=== PATIENT | female | born 2000 | race Caucasian/White ===

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

== ENCOUNTER 2019-01-18 12:18 | Emergency (ER) | payer OTHER ==
[~2019-01-18] VITALS: Ht 167.6 cm; Wt 65.5 kg
--- NOTE | 2019-01-18 13:14 | REP ---
Clinical: Cough. Technique: PA and lateral. Findings: Small acute infiltrate in the basilar right upper lobe. Mediastinum and cardiac silhouette normal. Remainder of lung babin are clear. No effusion. No pneumothorax. Skeletal structures intact. Impression: Small right upper lobe infiltrate. Electronically Signed by Zeb Lopez MD 01/18/2019 01:05 P
[2019-01-18] MEDS ORDERED: LEVA750T7 PO (13:46)
[2019-01-18 13:48] VITALS: BP 116/74
== END 2019-01-18 14:08 | disposition home or self-care (01) ==
LOC: M ED 12:18
DX: J18.1 Lobar pneumonia, unspecified organism (principal); Z20.89 Contact with and (suspected) exposure to other communicable diseases; Z88.0 Allergy status to penicillin